=== PATIENT | male | born 1965 | race Hispanic/Latino ===

== ENCOUNTER 2023-06-07 06:40 | Day surgery (SDC) | payer OTHER ==
[~2023-06-07] VITALS: Ht 175.3 cm; Wt 90.7 kg
[2023-06-07] VITALS (10 sets, daily range): BP systolic 90–114; BP diastolic 47–66; PULSE 50–52; RESP 10–16
[~2023-06-07 06:40] MED LIST: 0.9%NACL 1000ML 1,000 ML IV ONE; ASPI-1197 PO; ATOR40TA69 PO; CLOP75TA32 PO; FENO48TA10 PO; FURO20TA4 PO; GABA300T26 PO; ICOS1CAP PO; METO-408 PO; RANO500T2 PO; SACU1TAB PO
[2023-06-07] MEDS ORDERED: PROPOFOL 10 MG/ML 20ML VIAL IV ONE (10:25)
== END 2023-06-07 11:55 | disposition home or self-care (01) ==
LOC: ENDO 06:40 → DAH 06:40 → ENDO 11:55
PROVIDERS: ATTEND Internal Medicine Gastroenterology
DX: R13.14 Dysphagia, pharyngoesophageal phase (principal); K29.40 Chronic atrophic gastritis without bleeding; K31.A0 Gastric intestinal metaplasia, unspecified; K22.89 Other specified disease of esophagus; R12 Heartburn; I11.0 Hypertensive heart disease with heart failure; I50.9 Heart failure, unspecified; E78.5 Hyperlipidemia, unspecified; I25.10 Atherosclerotic heart disease of native coronary artery without angina pectoris; Z86.73 Personal history of transient ischemic attack (TIA), and cerebral infarction without residual deficits; Z86.010 Personal history of colon polyps; Z95.0 Presence of cardiac pacemaker; Z83.3 Family history of diabetes mellitus; Z79.82 Long term (current) use of aspirin; Z87.891 Personal history of nicotine dependence; Z82.49 Family history of ischemic heart disease and other diseases of the circulatory system; Z79.899 Other long term (current) drug therapy; Z98.890 Other specified postprocedural states
CPT/HCPCS: 43239; J7030 ×3; J2704; A4620 ×2; A4215 ×4; A4223 ×2; A7002 ×2; A4222 ×2; A4221 ×2; A4663 ×2; A4216 ×2; A4606 ×2; J3490